=== PATIENT | female | born 1945 | race Caucasian/White ===

== ENCOUNTER 2018-04-19 06:02 | Inpatient (IN) | payer OTHER ==
[2018-04-03 17:25] VITALS: BMI 30.7
[~2018-04-19 06:02] MED LIST: CELECOXIB 200 MG CAPSULE PO ONE; GABAPENTIN 300 MG CAPSULE (FP) PO ONE; PANTOPRAZOLE 40 MG TABLET (FP) PO ONE; oxyCODONE HCL 10 MG SUSTAINED ACTING TABLET PO ONE
[2018-04-19] MEDS ORDERED: PANTOPRAZOLE 40 MG TABLET (FP) ONE (06:38)
[2018-04-19] MEDS ORDERED: GABAPENTIN 300 MG CAPSULE (FP) ONE (06:38)
[2018-04-19] MEDS ORDERED: CELECOXIB 200 MG CAPSULE ONE (06:38)
[2018-04-19] MEDS ORDERED: oxyCODONE HCL 10 MG SUSTAINED ACTING TABLET ONE (06:38)
[2018-04-19] MEDS ORDERED: SUCCINYLCHOLINE CHLORIDE 200 MG/10 ML VIAL ONE (06:53)
[2018-04-19] MEDS ORDERED: PROPOFOL 20 ML ONE ×3 (06:53→09:58)
[2018-04-19] MEDS ORDERED: ePHEDrine SULFATE 50 MG/1 ML AMPULE ONE (06:53)
[2018-04-19] MEDS ORDERED: ROCURONIUM BROMIDE 50 MG/5 ML VIAL ONE (06:53)
[2018-04-19] MEDS ORDERED: SODIUM CHLORIDE 0.9% P/F 10 ML VIAL IJ ONE ×2 (07:00→07:01)
[2018-04-19] MEDS ORDERED: MIDAZOLAM HCL 2 MG/2 ML SINGLE DOSE VIAL ONE (07:00)
[2018-04-19] MEDS ORDERED: BUPIVACAINE HCL/PF 0.5% (5MG/ML) 10 ML VIAL ONE (07:10)
[2018-04-19] MEDS ORDERED: TRANEXAMIC ACID 1000 MG/10 ML VIAL ONE ×2 (07:17→10:28)
[2018-04-19] MEDS ORDERED: VANCOMYCIN 1,000 MG VIAL (RESTRICTED TO ID ONLY) ONE ×2 (07:17→07:58)
[2018-04-19] MEDS ORDERED: ceFAZolin SODIUM 1 GM VIAL ONE (07:17)
[2018-04-19] MEDS ORDERED: ROPIVICAINE 0.2%/MORPH PF/KETOROLAC - 51ML DISP.SYRINGE IA ONE ×4 (07:33→10:45)
--- NOTE | 2018-04-19 07:48 | HP ---
Admitting History and Physical - Admission Chief Complaint: left knee osteoarthritis x year History of Present Illness: 72 year old female presents today in regard to her left knee. Longstanding history of left knee osteoarthritis. She complains of pain, limited ROM, difficulty ambulating and difficulty with ADLs. Patient has failed conservative treatment measures including PO medications, injections, activity modifications and exercise programs. At this point, patient wishes to proceed with surgical intervention - left total knee arthroplasty, MAKOplasty. History Source: Patient - Past Medical History Cardiovascular: Yes: HTN, Hyperlipdemia ENT: Yes: Other (vertigo) - Past Surgical History Additional Past Surgical History: See written history and physical. - Smoking History Smoking history: Never smoked Have you smoked in the past 12 months: No - Alcohol/Substance Use Hx Alcohol Use: No Home Medications - Allergies Allergies/Adverse Reactions: Allergies Allergy/AdvReac Type Severity Reaction Status Date / Time amoxicillin Allergy Intermediate Rash Verified 04/19/18 07:11 latex Allergy Intermediate Rash Verified 04/19/18 07:11 apples Allergy Severe LIP Uncoded 04/19/18 07:11 SWELLING,RASH figs Allergy Severe LIP Uncoded 04/19/18 07:11 SWELLING,RASH seasonal Allergy Intermediate NASAL Uncoded 04/19/18 07:11 CONGESTION - Home Medications Home Medications: Ambulatory Orders Aspirin [Aspirin EC] 81 mg PO DAILY 04/03/18 Famotidine [Pepcid] 10 mg PO DAILY PRN 04/03/18 Lisinopril/Hydrochlorothiazide [Lisinopril-Hctz 20-12.5 mg Tab] 1 each PO DAILY 04/03/18 Meclizine HCl [Antivert -] 25 mg PO TID PRN 04/03/18 Metoprolol Tartrate [Lopressor -] 25 mg PO DAILY 04/03/18 Simvastatin [Zocor -] 20 mg PO HS 04/03/18 Review of Systems - Review of Systems Musculoskeletal: reports: Crepitus (left knee), Decreased ROM (left knee), Joint Pain (left knee), Joint Swelling (left knee) Physical Examination Vital Signs: Vital Signs Temperature 98.0 F 04/19/18 07:18 Pulse Rate 54 L 04/19/18 07:18 Respiratory Rate 16 04/19/18 07:18 Blood Pressure 151/82 04/19/18 07:18 O2 Sat by Pulse Oximetry (%) 97 04/19/18 07:18 Constitutional: Yes: Well Nourished, No Distress Eyes: Yes: Conjunctiva Clear HENT: Yes: Atraumatic, Normocephalic Neck: Yes: Supple Cardiovascular: Yes: Regular Rate and Rhythm Respiratory: Yes: Regular Gastrointestinal: Yes: Soft ...Rectal Exam: Yes: Deferred Musculoskeletal: Yes: Joint Stiffness (left knee), Joint Swelling (left knee) Assessment/Plan 72 year old female presents today in regard to her left knee. Longstanding history of left knee osteoarthritis. She complains of pain, limited ROM, difficulty ambulating and difficulty with ADLs. Patient has failed conservative treatment measures including PO medications, injections, activity modifications and exercise programs. At this point, patient wishes to proceed with surgical intervention - left total knee arthroplasty, MAKOplasty. Pros, cons, risks, benefits and alternatives of a left total knee arthroplasty, MAKOplasty - was discussed with the patient at length. Patient confirms her understanding and consents to proceed with a left total knee arthroplasty, MAKOplasty.
[2018-04-19] MEDS ORDERED: CEFAZOLIN 2 GM in DEXTROSE 5%-WATER - 50 ML IVPB ONE (08:00)
[2018-04-19] MEDS ORDERED: TRANEXAMIC ACID 1000 MG/10 ML VIAL IVPUSH ONE (08:00)
--- NOTE | 2018-04-19 11:24 | OP ---
Operative Note - Note: Operative Date: 04/19/18 Pre-Operative Diagnosis: Left knee OA Operation: Left STEPHEN TKA Post-Operative Diagnosis: Same as Pre-op Surgeon: Seb Rodríguez Real Estate Attorney: Abbie Frank Anesthesia: Spinal Estimated Blood Loss (mls): 150
[2018-04-19] MEDS ORDERED: MECLIZINE HCL 25 MG TABLET (FP) PO PRN (11:25)
[2018-04-19] MEDS ORDERED: FAMOTIDINE 20 MG TABLET PO PRN (11:25)
[2018-04-19] MEDS ORDERED: MAGNESIUM HYDROX 2400MG/30ML ORAL SUSPENSION 30 ML CUP PO PRN (11:30)
[2018-04-19] MEDS ORDERED: LACTATED RINGERS SOLUTION 1,000 ML IV SCH (11:30)
[2018-04-19] MEDS ORDERED: MAG HYDROX/AL HYDROX/SIMETH 30 ML UNIT-DOSE CUP PO PRN (11:30)
[2018-04-19] MEDS ORDERED: ONDANSETRON 4 MG/2 ML VIAL IVPUSH PRN ×2 (11:30→12:28)
[2018-04-19] MEDS ORDERED: KETOROLAC TROMETHAMINE 30 MG/1 ML VIAL ONE (11:53)
[2018-04-19] MEDS: KETOROLAC TROMETHAMINE 15 MG/ML VIAL IVPUSH SCH ×3 (12:00→17:51)
[2018-04-19] MEDS: traMADol HCL 50 MG TABLET PO SCH ×3 (12:00→17:52)
[2018-04-19] MEDS: ACETAMINOPHEN 1000 MG/100 ML VIAL (NON FORMULARY) IVPB ONE ×2 (12:00→14:11)
[2018-04-19] MEDS ORDERED: PROMETHAZINE HCL 25 MG/1 ML VIAL ONE (12:24)
[2018-04-19] MEDS ORDERED: oxyCODONE HCL 5 MG TABLET PO PRN ×2 (12:28)
[2018-04-19] MEDS ORDERED: PROMETHAZINE HCL 25 MG/1 ML VIAL IVPB PRN (12:28)
--- NOTE | 2018-04-19 14:09 | SPEC ---
DATE OF OPERATION: 04/19/2018 PREOPERATIVE DIAGNOSIS: Left knee osteoarthritis. POSTOPERATIVE DIAGNOSIS: Left knee osteoarthritis. PROCEDURE: Left total knee replacement with MAKOplasty robotic navigation. ATTENDING: Delicia Enriquez MD ASSISTED LIVING ADMINISTRATOR: NATALIYA Jeffery. ANESTHESIA: Spinal plus sedation. ESTIMATED BLOOD LOSS: 150 mL. COMPLICATIONS: None. DISPOSITION: The patient was transferred to the PACU in stable condition. IMPLANTS USED: Taye Triathlon cementless knee replacement with size 3 femoral component, size 2 tibial component, 32-mm patellar component, and 13-mm posterior stabilized polyethylene component. INDICATIONS: This is a 72-year-old female with history of bilateral knee osteoarthritis. She underwent a right total knee replacement in 2015 and did well postoperatively. She subsequently developed severe left knee pain. She was seen and examined by Dr. Enriquez and diagnosed with severe left knee osteoarthritis. The patient was initially treated nonoperatively, but continued to have severe pain and ambulatory dysfunction. Radiographs revealed severe Kellgren-Kaveh grade 4 [id number] osteoarthritis. The patient was therefore indicated for a left total knee replacement with MAKOplasty robotic navigation. The risks, benefits, and alternatives to the procedure were explained to the patient in great detail, and she elected to proceed with the surgery. DESCRIPTION OF PROCEDURE: On the day of surgery, the patient was taken to the operating room and placed on the OR table. Spinal anesthesia was administered by the anesthesiologist. The patient was then positioned supine on the table and all bony prominences were padded. The knee was then prepped and draped in the usual sterile fashion and intravenous antibiotics were given for infection prophylaxis. A surgical time-out was then performed with the team, and the patients identity, procedure, side, availability of implants, and the administration of antibiotics was confirmed. With the knee flexed, a midline incision was made and carried down through the subcutaneous fat to the underlying retinaculum. A medial parapatellar arthrotomy was performed. This was followed by a subperiosteal dissection of the tissue off the proximal, medial tibia. A portion of fat pad was removed from under the patellar tendon, and a small portion of fat was excised off the distal supracondylar femur. Electrocautery and an Aquamant[employer] bipolar sealing device were used to achieve hemostasis. The knee was then flexed further and the anterior horn of the lateral meniscus was released from the midline. Next, the anterior and posterior cruciate ligaments were transected. Grade 4 changes were noted diffusely throughout the knee. Femoral and tibial checkpoints were then placed in the appropriate location using a mallet. Two parallel bicortical self-drilling pins were placed in the tibial diaphysis after making stab incisions and bluntly dissecting down to bone. Two pins were then placed in the distal supracondylar femur. The [employer] navigation arrays were then attached to both the femoral and tibial pins and the lower extremity was then registered to the robotic navigation device using various joint movements, as well as inputting several dozen reference points. The knee was then taken through a full range of motion with a corrective force applied. Alignment in varus/valgus as well as flexion/extension and soft tissue balance was measured in various positions. The navigation device showed a numerical and graphic representation of the soft tissue balance. The components were repositioned virtually using the software until optimal soft tissue balance was achieved on screen. Once this was accomplished, the final plan was saved and sent to the robot. Self-retaining retractors were then placed at the joint line for exposure and protection of the collateral ligaments. The robot was brought into the sterile field and registered with the navigation device. The robotic arm with attached oscillating saw blade was then used to perform femoral and tibial bone cuts as per the saved software plan. The femoral box cut was made using the appropriately sized manual cutting guide. The knee was then irrigated. Trial components were placed and the knee was taken through a full range of motion to assess soft tissue balance and alignment. The range of motion was found to be excellent and the soft tissue balance was optimal and according to plan. The knee was then put into extension and the patella everted. The synovium around the patella was circumscribed with electrocautery. A caliper was used to measure the patellar thickness and a saw was then used to resect the patella at the chondro-osseous junction. The cut surface was then sized and drilled for the appropriate patellar button, with care taken to medialize it. A trial patella was then placed and the knee was again taken through a full range of motion. The knee was found to have both good balance and good patellar tracking. All of the components were removed except the tibial base plate. The appropriate instrumentation was used to drill and punch the proximal tibia for the keel of the final component. All bony surfaces were then cleaned with pulsatile lavage and dried. Cementless [employer] Triathlon knee replacement components were then impacted in place and found to have a stable press-fit. A trial polyethylene component was placed and the knee was again taken through a full range of motion to assess stability, balance, and patellar tracking. This was found to be optimal and the trial polyethylene was exchanged for the appropriately sized real implant. The wound was then thoroughly irrigated with normal saline. A 3-minute dilute Betadine lavage was performed. The knee was again irrigated using a pulsatile lavage device. A periarticular injection was used to locally infiltrate the capsular tissues surrounding the implant and prosthesis. Then No. 1 Polysorb and 0 VLoc 180 barbed sutures were used to close the arthrotomy. Then No. 1 Polysorb and 2-0 VLoc 90 sutures were used in the subcutaneous tissues. Then 4-0 undyed Vicryl and Dermabond skin adhesive was used to close the stab incisions made for the navigation pins. The skin was closed using both 3-0 VLoc 90 suture in a running subcuticular fashion and Dermabond skin adhesive. Once this was completed a sterile Aquacel dressing and compressive Dinesh-wrap was applied. The patient was then awakened and taken to the PACU in stable condition. DELICIA ENRIQUEZ M.D. [id number]
[2018-04-19] MEDS ORDERED: DEXAMETHASONE SOD PHOSPHATE 10 MG/1 ML VIAL IVPB ONE (20:00)
[2018-04-19] MEDS ORDERED: VANCOMYCIN 1 GRAM (PRE-DOCKED) 1,000 MG/250 ML BAG IVPB ONE (20:00)
[2018-04-19] MEDS: CELECOXIB 200 MG CAPSULE PO SCH (21:25)
[2018-04-19] MEDS: APIXABAN 2.5 MG TABLET PO SCH (21:26)
[2018-04-19] MEDS: SENNOSIDES/DOCUSATE COMBO (SENNA PLUS) TABLET (UD) PO SCH (21:26)
[2018-04-19] MEDS: oxyCODONE HCL 10 MG SUSTAINED ACTING TABLET PO SCH (21:27)
[2018-04-19] MEDS: GABAPENTIN 300 MG CAPSULE (FP) PO SCH (21:28)
[2018-04-19] MEDS: ATORVASTATIN CA 10 MG TABLET (FP) PO SCH (21:28)
[2018-04-19] MEDS: ASCORBIC ACID 500 MG TABLET (FP) PO SCH (21:28)
[2018-04-19] MEDS ORDERED: PATIENT'S OWN MEDICATION (NON-FORMULARY) (Simvastatin 20 MG) PO SCH (22:00)
[2018-04-20] MEDS: KETOROLAC TROMETHAMINE 15 MG/ML VIAL IVPUSH SCH ×2 (01:10→05:49)
[2018-04-20] MEDS: traMADol HCL 50 MG TABLET PO SCH ×4 (01:10→18:00)
[2018-04-20 08:36] LABS: HEMATOCRIT 35.9 % (32.4-45.2); HEMOGLOBIN 11.8 GM/dl (10.7-15.3); MCH 29.5 pg (25.7-33.7); MCHC 32.8 g/dl (32.0-36.0); MEAN PLT VOLUME 10.6 fl (7.5-11.1); PLATELET COUNT 172 K/MM3 (134-434); RBC 3.99 M/mm3 (3.60-5.2); RDW 12.1 % (11.6-15.6); WHITE BLOOD COUNT 12.2 K/mm3 (4.0-10.8)
[2018-04-20 08:47] LABS: ANION GAP 7 MMOL/L (8-16); BLOOD UREA NITROGEN 27 mg/dl (7-18); CALCIUM 8.8 mg/dl (8.4-10.2); CHLORIDE 105 mmol/L (98-107); CO2 26 mmol/L (22-28); CREATININE 0.7 mg/dl (0.6-1.3); GLUCOSE,RANDOM 145 mg/dl (74-106); POTASSIUM 3.7 mmol/L (3.5-5.1); SODIUM 138 mmol/L (136-145)
--- NOTE | 2018-04-20 09:06 | PN ---
Progress Note, Physician Chief Complaint: day 1 s/p L knee TKR - Current Medication List Current Medications: Active Medications Al Hydroxide/Mg Hydroxide (Mylanta Oral Suspension -) 30 ml PO Q4H PRN PRN Reason: DYSPEPSIA Apixaban (Eliquis -) 2.5 mg PO BID [facility] Last Admin: 04/19/18 21:26 Dose: 2.5 mg Ascorbic Acid (Vitamin C -) 500 mg PO BID [facility] Last Admin: 04/19/18 21:28 Dose: 500 mg Atorvastatin Calcium (Lipitor -) 10 mg PO HS [facility] Last Admin: 04/19/18 21:28 Dose: 10 mg Celecoxib (Celebrex -) 200 mg PO BID [facility] Last Admin: 04/19/18 21:25 Dose: 200 mg Famotidine (Pepcid -) 10 mg PO DAILY PRN PRN Reason: INDIGESTION Gabapentin (Neurontin -) 300 mg PO BID [facility] Stop: 04/22/18 21:59 Last Admin: 04/19/18 21:28 Dose: 300 mg Hydrochlorothiazide (Hctz -) 12.5 mg PO DAILY [facility] Lisinopril (Prinivil) 20 mg PO DAILY [facility] Magnesium Hydroxide (Milk Of Magnesia -) 30 ml PO PRN PRN PRN Reason: CONSTIPATION Meclizine HCl (Antivert -) 25 mg PO TID PRN PRN Reason: VERTIGO Last Admin: 04/20/18 05:42 Dose: 25 mg Metoprolol Tartrate (Lopressor -) 25 mg PO DAILY [facility] Multivitamins/Minerals/Vitamin C (Tab-A-Vit -) 1 tab PO DAILY [facility] Ondansetron HCl (Zofran Injection) 4 mg IVPUSH Q6H PRN PRN Reason: NAUSEA Last Admin: 04/20/18 05:42 Dose: 4 mg Oxycodone HCl (Roxicodone -) 5 mg PO Q3H PRN PRN Reason: PAIN LEVEL 1-5 Oxycodone HCl (Roxicodone -) 10 mg PO Q3H PRN PRN Reason: PAIN LEVEL 6-10 Oxycodone HCl (Oxycontin -) 10 mg PO BID [facility] Stop: 04/22/18 12:28 Last Admin: 04/19/18 21:27 Dose: 10 mg Pantoprazole Sodium (Protonix -) 40 mg PO DAILY [facility] Senna/Docusate Sodium (Pericolace -) 2 tablet PO BID [facility] Last Admin: 04/19/18 21:26 Dose: 2 tablet Tramadol HCl (Ultram -) 50 mg PO Q6H [facility] Last Admin: 04/20/18 06:49 Dose: Not Given - Objective Vital Signs: Vital Signs Temperature 98.4 F 04/20/18 00:00 Pulse Rate 84 04/20/18 00:00 Respiratory Rate 20 04/20/18 00:00 Blood Pressure 128/67 04/20/18 00:00 O2 Sat by Pulse Oximetry (%) 98 04/19/18 21:00 Assessment/Plan Pt has miminal pain today, but c/o dizziness/sleepiness last night, from PO pain meds. She hasn't taken a dose in last few hours and feels much better. Wasn't able to ambulate much yesterday; will try again today. No anesthetic issues/complications
[2018-04-20] MEDS ORDERED: PATIENT'S OWN MEDICATION (NON-FORMULARY) (Lisinopril/Hydrochlorothiazide [Lisinopril-Hctz PO SCH (10:00)
[2018-04-20] MEDS: APIXABAN 2.5 MG TABLET PO SCH ×2 (10:25→21:25)
[2018-04-20] MEDS: oxyCODONE HCL 10 MG SUSTAINED ACTING TABLET PO SCH ×2 (10:25→21:28)
[2018-04-20] MEDS: HYDROCHLOROTHIAZIDE 12.5 MG CAPSULE (FP) PO SCH (10:25)
[2018-04-20] MEDS: CELECOXIB 200 MG CAPSULE PO SCH ×2 (10:25→21:25)
[2018-04-20] MEDS: METOPROLOL TARTRATE 25 MG TABLET (FP) PO SCH (10:25)
[2018-04-20] MEDS: PANTOPRAZOLE 40 MG TABLET (FP) PO SCH (10:27)
[2018-04-20] MEDS: SENNOSIDES/DOCUSATE COMBO (SENNA PLUS) TABLET (UD) PO SCH ×2 (10:27→21:26)
[2018-04-20] MEDS: GABAPENTIN 300 MG CAPSULE (FP) PO SCH ×2 (10:27→21:25)
[2018-04-20] MEDS: LISINOPRIL 20 MG TABLET (FP) PO SCH (10:27)
[2018-04-20] MEDS: MULTIVITAMINS (DAILY MVI) TABLET (FP) PO SCH (10:27)
[2018-04-20] MEDS: ASCORBIC ACID 500 MG TABLET (FP) PO SCH ×2 (10:27→21:26)
[2018-04-20] MEDS ORDERED: ACETAMINOPHEN 325 MG TABLET (FP) ONE (21:23)
[2018-04-20] MEDS: ATORVASTATIN CA 10 MG TABLET (FP) PO SCH (21:25)
--- NOTE | 2018-04-20 22:12 | PN ---
Progress Note (short form) - Note Progress Note: Pt seen and examined. Doing well. Nausea resolved. AVSS Selected Entries 04/20/18 04/20/18 04/20/18 14:32 21:00 21:54 Temperature 98.3 F Pulse Rate 77 78 Respiratory 16 20 20 Rate Blood Pressure 116/56 L 118/61 O2 Sat by Pulse 98 Oximetry (%) Laboratory Tests 04/20/18 04/20/18 07:51 07:51 WBC 12.2 H Hgb 11.8 Hct 35.9 Plt Count 172 Sodium 138 Potassium 3.7 Chloride 105 Carbon Dioxide 26 Anion Gap 7 L BUN 27 H Creatinine 0.7 Creat Clearance w eGFR > 60 Random Glucose 145 H Calcium 8.8 Gen: NAD LLE: c/d/i, NVID A/P 72yo female POD#1 s/p L STEPHEN TKA PT/OOB D/C home in AM; f/u in office in 10-14 days
--- NOTE | 2018-04-20 22:34 | DS ---
Physical Examination Vital Signs: Vital Signs Temperature 98.3 F 04/20/18 14:32 Pulse Rate 78 04/20/18 21:54 Respiratory Rate 20 04/20/18 21:54 Blood Pressure 118/61 04/20/18 21:54 O2 Sat by Pulse Oximetry (%) 98 04/20/18 21:00 Labs: CBC, BMP 04/20/18 07:51 04/20/18 07:51 Discharge Summary Reason For Visit: LEFT KNEE OSTEOARTHRITIS Current Active Problems Osteoarthritis of left knee (Acute) Procedures: Principal: left STEPHEN TKA Hospital Course: Dr. Rodríguez - Knee Replacement Instructions Keep the Aquacel dressing on until removed by Dr. Rodríguez in 10-14 days - it is antibacterial and waterproof and you can shower with it on. Call the office for a follow-up appointment with Dr. Rodríguez in 10-14 days. Take one Aspirin 325mg daily for 6 weeks to prevent blood clots in your legs. Take one Pantoprazole 40mg daily for 6 weeks to protect against heartburn and ulcers. Take Cephalexin (antibiotic) 3x/day for 10 days to help prevent skin infection. Take Celebrex 200mg twice daily for 30 days to reduce swelling and inflammation. Take a multivitamin, stool softener, and extra Vitamin C supplement daily. For pain: *Mild pain (1-3/10): Take 1 Tramadol tablet every 4 hours as needed. Moderate pain (4-6/10): Take 1 Tramadol tablet and 1 Percocet tablet every 4 hours as needed. Severe pain (7-10/10): Take 1 Tramadol tablet and 2 Percocet tablets every 4 hours as needed. Activity: You can put as much weight on the operative leg as you want. Right after you get home, there will be a physical therapist coming to your house to help you walk around and bend/straighten your knee. After your follow-up appointment, you will be sent for more intensive outpatient physical therapy which will include machines and equipment that the home therapist cannot bring to your house. Always use a walker or cane for balance and to prevent falls. Expect to see swelling/bruising from the operative site all the way down to your toes. Wear the compression stocking on the operative side during the day to minimize how much swelling there is in your foot/ankle. Don't wear the stocking at night. You don't have to wear a stocking on the other side. Condition: Stable - Instructions Diet, Activity, Other Instructions: Dr. Rodríguez - Knee Replacement Instructions Keep the Aquacel dressing on until removed by Dr. Rodríguez in 10-14 days - it is antibacterial and waterproof and you can shower with it on. Call the office for a follow-up appointment with Dr. Rodríguez in 10-14 days. Take ELIQUIS 2.5mg twice daily for 35 days total to prevent blood clots in your legs. Stop taking aspirin while you are on the Eliquis. Resume taking aspirin after the 35 days. Take one Pantoprazole 40mg daily for 6 weeks to protect against heartburn and ulcers. Take Clindamycin (antibiotic) 3x/day for 7 days to help prevent skin infection. Take a multivitamin, stool softener, and extra Vitamin C supplement daily. For pain: *Mild pain (1-3/10): Take 1 Tramadol tablet every 4 hours as needed. Moderate pain (4-6/10): Take 1 Tramadol tablet and 1 Percocet tablet every 4 hours as needed. Severe pain (7-10/10): Take 1 Tramadol tablet and 2 Percocet tablets every 4 hours as needed. Activity: You can put as much weight on the operative leg as you want. Right after you get home, there will be a physical therapist coming to your house to help you walk around and bend/straighten your knee. After your follow-up appointment, you will be sent for more intensive outpatient physical therapy which will include machines and equipment that the home therapist cannot bring to your house. Always use a walker or cane for balance and to prevent falls. Expect to see swelling/bruising from the operative site all the way down to your toes. Wear the compression stocking on the operative side during the day to minimize how much swelling there is in your foot/ankle. Don't wear the stocking at night. You don't have to wear a stocking on the other side. Disposition: VNS/HOME HEALTH CARE - Home Medications Comprehensive Discharge Medication List: Ambulatory Orders Famotidine [Pepcid] 10 mg PO DAILY PRN 04/03/18 Lisinopril/Hydrochlorothiazide [Lisinopril-Hctz 20-12.5 mg Tab] 1 each PO DAILY 04/03/18 Meclizine HCl [Antivert -] 25 mg PO TID PRN 04/03/18 Metoprolol Tartrate [Lopressor -] 25 mg PO DAILY 04/03/18 Simvastatin [Zocor -] 20 mg PO HS 04/03/18 Apixaban [Eliquis -] 2.5 mg PO BID #66 tablet 04/20/18 Ascorbic Acid [Vitamin C -] 500 mg PO BID tablet 04/20/18 Clindamycin [Cleocin -] 300 mg PO TID #21 capsule 04/20/18 Multivitamins [Multivit ([facility] Formulary)] 1 tab PO DAILY tab 04/20/18 Oxycodone HCl/Acetaminophen [Percocet 5-325 mg Tablet] 1 - 2 tab PO Q4H PRN #60 tablet MDD 10 04/20/18 Pantoprazole Sodium [Protonix -] 40 mg PO DAILY #40 tablet.ec 04/20/18 Sennosides/Docusate Sodium [Pericolace -] 2 tablet PO BID tablet 04/20/18 traMADol HCL [Ultram -] 50 mg PO Q4H PRN #42 tablet MDD 6 04/20/18
[2018-04-20] MEDS ORDERED: ACETAMINOPHEN 500 MG TABLET (FP) PO PRN (22:35)
[2018-04-21] MEDS: traMADol HCL 50 MG TABLET PO SCH ×3 (04:47→12:30)
[2018-04-21 06:52] VITALS: BP 130/67; PULSE 75; TEMP 98.1
[2018-04-21] MEDS: GABAPENTIN 300 MG CAPSULE (FP) PO SCH (09:29)
[2018-04-21] MEDS: METOPROLOL TARTRATE 25 MG TABLET (FP) PO SCH (09:29)
[2018-04-21] MEDS: HYDROCHLOROTHIAZIDE 12.5 MG CAPSULE (FP) PO SCH (09:29)
[2018-04-21] MEDS: APIXABAN 2.5 MG TABLET PO SCH (09:29)
[2018-04-21] MEDS: CELECOXIB 200 MG CAPSULE PO SCH (09:29)
[2018-04-21] MEDS: LISINOPRIL 20 MG TABLET (FP) PO SCH (09:30)
[2018-04-21] MEDS: SENNOSIDES/DOCUSATE COMBO (SENNA PLUS) TABLET (UD) PO SCH (09:30)
[2018-04-21] MEDS: oxyCODONE HCL 10 MG SUSTAINED ACTING TABLET PO SCH (09:30)
[2018-04-21] MEDS: ASCORBIC ACID 500 MG TABLET (FP) PO SCH (09:30)
[2018-04-21] MEDS: MULTIVITAMINS (DAILY MVI) TABLET (FP) PO SCH (09:30)
[2018-04-21] MEDS: PANTOPRAZOLE 40 MG TABLET (FP) PO SCH (09:30)
--- NOTE | 2018-04-27 12:09 | PATH ---
Surgical Pathology Report Patient Name: SHANTEL SANTAMARIA Med. Rec. #: [id number] /Age/Gender: 1945 (Age: 72) / F Account: [id number] Location: [facility] MED-SURG Taken: 04/19/2018 Received: 04/19/2018 Reported: 04/27/2018 Physicians: Seb Rodríguez M.D. Specimen(s) Received LEFT KNEE BONE Clinical History Osteoarthritis left knee Final Diagnosis KNEE BONE, LEFT, TOTAL KNEE REPLACEMENT: DEGENERATIVE JOINT DISEASE. Electronically Signed Page Beal M.D. Gross Description Received in formalin labeled "left knee bone," is a 12.0 x 11.0 x 2.4 cm aggregate of multiple portions of bone and soft tissue, consistent with knee bones. There are multiple areas of eburnation present, measuring up to 3.6 cm in greatest dimension. The remaining articular surfaces are sarmiento-yellow and diffusely granular. The underlying trabecular bone is yellow and hard. Coffee Break Attendant sections are submitted in one cassette, following decalcification. 04/20/2018 [facility]04/20/2018
== END 2018-04-21 01:45 | disposition home health service (06) | DRG 470 ==
LOC: FM/S 06:02
PROVIDERS: ADMIT Student in an Organized Health Care Education/Training Program; ATTEND Student in an Organized Health Care Education/Training Program
PROC: 0SRD0JA Replacement of Left Knee Joint with Synthetic Substitute, Uncemented, Open Approach (ICD-10-PCS; principal; 2018-04-19 08:47)
DX: M17.12 Unilateral primary osteoarthritis, left knee (principal); I10 Essential (primary) hypertension; E78.5 Hyperlipidemia, unspecified
CPT/HCPCS: 36415; 73560-TC-LT-FY; 80048; 85027; 88304-TC; 88311-TC; 94760; 97116-GP; 97162-GP; J0131; J1100